=== PATIENT | male | born 1945 | race Caucasian/White ===

== ENCOUNTER → 2018-09-14 | Outpatient (CLI) | payer OTHER | END | disposition home or self-care (01) | LOC: RAH 12:16 | PROVIDERS: ATTEND Family Medicine | DX: C61 Malignant neoplasm of prostate (principal); M13.832 Other specified arthritis, left wrist; M13.831 Other specified arthritis, right wrist | CPT/HCPCS: 78306; A9503 ==

== ENCOUNTER 2025-07-27 20:37 | Emergency (ER) | payer OTHER ==
[~2025-07-27] VITALS: Ht 177.8 cm; Wt 73.5 kg
--- NOTE | 2025-07-27 21:01 | EKG ---
[facility] Test Date: 2025-07-27 Test Time: 20:56:19 Pat Name: AMANDA MUÑOZ Department: ED Room: Gender: M [employer]ory [employer]er: [id number] : 1945 Requested By: KIERRA ZAVALA Order Number: [id number] Reading MD: Cheo Hauser Measurements Intervals [place] Rate: 60 P: 0 NH: 0 QRS: 72 QRSD: 109 T: 44 QT: 445 QTc: 444 Interpretive Statements Atrial fibrillation Low voltage, extremity leads Consider anteroseptal infarct No previous ECG available for comparison Electronically Signed On 07-28-2025 15:13:17 CDT by Cheo Hauser Please click the below link to view image of tracing.
[2025-07-27 21:31] LABS: IMMATURE GRANULOCYTE ABSOLUTE 0.02 K/uL (0-1); NUCLEATED RED BLOOD CELLS 0.0 % (0.0-0.19); PLATELET COUNT (AUTO) 134 K/uL (130-400); RED BLOOD CELL COUNT(AUTO) 4.02 MIL/uL (4.50-6.20); RED CELL DISTRIBUTION WIDTH 13.2 % (11.0-15.5); WHITE BLOOD COUNT (AUTO) 5.8 K/uL (4.8-10.8)
[2025-07-27 21:40] LABS: CREATININE 1.0 mg/dL (0.5-1.3); GLOMERULAR FILTR. RATE CALC 76.0 mL/min (>90); GLUCOSE,RANDOM 96.0 mg/dL (70-105); SODIUM SERUM 142.0 mmol/L (136-145); UREA NITROGEN, BLOOD 16.0 mg/dL (7-18)
[2025-07-27] MEDS: OCTYL 2-CYANOACRYLATE 1 EACH TP ONE ×3 (22:19→22:23)
--- NOTE | 2025-07-27 22:19 | ERN ---
ED Note History of Present Illness Stated Complaint: BLEEDING WOUND Chief Complaint: Wound Check Time Seen by MD: 20:39 Time Seen by Midlevel: 20:41 Dictation: [age] male brought in via EMS for bleeding through the lower extremity. According to the patient and he just describes to the ankle in one of his varices began to bleed. Patient is taking a blood thinner due to his AFib. On arrival patient has a Drake bandage and bleeding is controlled. Allergies: Coded Allergies: No Known Drug Allergies (Unverified Allergy, Unknown, 07/27/25) Past Medical History Past Medical History: A-Fib, Cancer, Glaucoma, High Cholesterol, Heart Disease, Hypertension Additional Past Medical Hx: PROSTATE CA Surgical History: Unknown Review of System Dictation Constitutional: Negative for fever,chills, and weight loss Eyes: Negative for injury, pain,redness, and discharge ENT: Negative for injury,pain or swelling Cardiovascular: Negative for chest pain, palpitations, and edema Respiratory: Negative for shortness of breath, cough, and wheezing, Abdomen/GI: Negative for abdominal pain, nausea, vomiting, diarrhea, and constipation Back: Negative for injury and pain : Negative for injury, bleeding and discharge MS/Extremity: Negative for injury and deformity Skin: Negative for rash, and discoloration, bleed round lower extremity Neuro: Negative for headache, weakness, numbness, tingling, and seizure Psych: Negative for suicide ideation, homicidal ideation, and hallucinations Review of Systems: was completed Initial Vital Sign VS Vital Signs Date Time Temp Pulse Resp B/P (MAP) Pulse Ox O2 Delivery O2 Flow Rate FiO2 07/27/25 20:41 97.2 87 16 122/72 99 Room Air 0 07/27/25 21:14 21 Physical Exam Dictation General: awake, alert, NAD Head/Face: Normocephalic, atraumatic Eyes: PERRL, EOMI, vision at baseline ENT: oral cavity clear, TMs clear, no signs of infection Neck: Trachea midline, supple, no nuchal rigidity Cardiovascular: RRR, normal S1/S2, No MRGs, no JVD Respiratory: CTAB, no respiratory distress, No rales or wheezes Abdomen: Soft, non-tender, non-distended, normal bowel sounds, no guarding or rebound. Skin: Warm, dry, normal turgor, no rash bleeding from a varicose vein. MS/Extremity: Pulses equal, no cyanosis, neurovascular intact, FROM Neuro: COAx4, GCS 15, strength 5/5, CN 2-12 intact, normal cerebellar exam, normal gait, Psych: Normal behavior, mood, and affect normal Results (Laboratory/Radiology) Laboratory/Radiology Laboratory Tests Test 07/27/25 21:16 White Blood Count 5.8 K/uL (4.8-10.8) Red Blood Count 4.02 MIL/uL (4.50-6.20) L Hemoglobin 13.2 g/dL (14.0-18.0) L Hematocrit 39.5 % (42-54) L Mean Corpuscular Volume 98.3 fL (79-99) Mean Corpuscular Hemoglobin 32.8 pg (27.0-33.0) Mean Corpuscular Hemoglobin Concent 33.4 g/dL (32.0-36.0) Red Cell Distribution Width 13.2 % (11.0-15.5) Platelet Count 134 K/uL (130-400) Mean Platelet Volume 9.3 fL (7.5-10.5) Immature Granulocyte % (Auto) 0.3 % (0-1) Neutrophils (%) (Auto) 60.4 % (40.0-77.0) Lymphocytes (%) (Auto) 25.9 % (21.0-51.0) Monocytes (%) (Auto) 11.0 % (3.0-13.0) Eosinophils (%) (Auto) 1.9 % (0.0-8.0) Basophils (%) (Auto) 0.5 % (0.0-5.0) Neutrophils # (Auto) 3.5 K/uL (1.8-7.7) Lymphocytes # (Auto) 1.5 K/uL (1.0-4.8) Monocytes # (Auto) 0.6 K/uL (0.1-1.0) Eosinophils # (Auto) 0.11 K/uL (0.00-0.70) Basophils # (Auto) 0.03 K/uL (0.00-0.20) Absolute Immature Granulocyte (auto 0.02 K/uL (0-1) Nucleated Red Blood Cells 0.0 % (0.0-0.19) Sodium Level 142 mmol/L (136-145) Potassium Level 3.1 mmol/L (3.5-5.1) L Chloride Level 105 mmol/L (101-111) Carbon Dioxide Level 31 mmol/L (21-32) Blood Urea Nitrogen 16 mg/dL (7-18) Creatinine 1.0 mg/dL (0.5-1.3) Glomerular Filtration Rate Calc 76 mL/min (>90) Random Glucose 96 mg/dL (70-105) Total Calcium 8.3 mg/dL (8.5-10.1) L Labs Reviewed?: Yes ED Course ED Course Orders Procedure Category Date Status Time Dermabond Set Up CPOE 07/27/25 Transmitted Bedside (Er) 20:45 Cbc With Differential LAB 07/27/25 Complete 20:47 Basic Metabolic Panel LAB 07/27/25 Complete 20:47 12 Lead Ekg Tracing- EKG 07/27/25 Complete Technical 20:50 Dermabond (Dermabond) PHA 07/27/25 Complete 22:01 Dermabond (Dermabond) PHA 07/27/25 Complete 22:06 Current Medications Medications (Trade) Dose Ordered Sig/Freddie Route PRN Reason Start Time Stop Time Status Last Admin Dose Admin Octyl Cyanoacrylate (Dermabond) 1 each STK-MED ONCE TP 07/27/25 22:01 07/27/25 22:01 DC Octyl Cyanoacrylate (Dermabond) 1 each STK-MED ONCE TP 07/27/25 22:06 07/27/25 22:06 DC Vital Signs Date Time Temp Pulse Resp B/P (MAP) Pulse Ox O2 Delivery O2 Flow Rate FiO2 07/27/25 21:14 98.4 85 18 132/66 98 Room Air* 0 21 07/27/25 20:41 97.2 87 16 122/72 99 Room Air 0 Medical Decision Making MDM MDM: [age] male brought in via EMS for bleeding through the lower extremity. According to the patient and he just describes to the ankle in one of his varices began to bleed. Patient is taking a blood thinner due to his AFib. On arrival patient has a Drake bandage and bleeding is controlled. Area was being cleaned by primary nurse went bleeding began. Pressure dressing and QuikClot applied. Leg was elevated. Re-evaluated the leg in 60 minute. Bleeding controlled. Applied a for Steri-Strips and Dermabond. Bleeding has been controlled. Pressure dressing and Drake bandage we will be reapplied. Differential diagnosis: Coagulopathic, ruptured variceal, arterial bleed Rationale: Tests considered and ordered secondary to shared decision making include: Previous outside records reviewed: Old ER visits. Risk of complication and/or morbidity or mortality of patient management: None Medications-Per medication reconciliation Need for hospitalization: Patient does not meet criteria for hospitalization. Need for emergency major/minor surgery: No There are no social concerns with this patient. Prescription drug management Prescriptions will include symptomatic care Patient's prior external medical records from other ER visits were reviewed by me as indicated. Prior testing and results from previous visits were reviewed. Prior tests were taken into account with medical decision making and resource utilization, independent historian/historians were used to obtain complete medical history. I independently interpreted the test that were performed, results were reviewed by me and considered findings on radiology if ordered. Medical management and examination interpretation discussions were had by me with other qualified healthcare professionals as indicated for the patient's care. Procedure Wound Location: lower extremity Wound's Depth, Shape: superficial Wound Explored: clean Wound Debrided: minimal Wound Repaired With: Dermabond DX & DISP Disposition: Discharge Departure Impression: Primary Impression: Leg varices Condition: Stable Referrals: SELF,REFERRAL (PCP) I have reviewed the case, and I agree with, Diagnosis and Plan INDIO ROSARIO CNP Jul 27, 2025 22:19
[2025-07-27 22:46] VITALS: BP 140/65; PULSE 82; RESP 18; TEMP 98.4; O2SAT 99
== END 2025-07-27 22:49 | disposition home or self-care (01) ==
LOC: EDH 20:37
DX: I83.892 Varicose veins of left lower extremity with other complications (principal); I48.91 Unspecified atrial fibrillation; I11.9 Hypertensive heart disease without heart failure; E78.00 Pure hypercholesterolemia, unspecified; Z85.46 Personal history of malignant neoplasm of prostate
CPT/HCPCS: 36415; 80048; 85025; 93005; 99283; 99284